=== PATIENT | male | born 1985 | race Caucasian/White ===

== ENCOUNTER 2022-11-11 14:04 | Outpatient (REF) | payer BC, SELFPAY ==
[2022-11-11 15:29] LABS: Bacteria Rare HPF (Negative); Casts Negative LPF (Negative); Crystals Negative HPF (Negative); Epithelial Cells Rare HPF (Negative); Mucus Negative (Negative); RBC 0-2 HPF (0-2); WBC 0-2 HPF (0-5)
[2022-11-11 15:30] LABS: C & S Indicated? C&S Done As Ordered
== END 2022-11-11 14:05 | disposition home or self-care (01) ==
LOC: LBN 14:04
PROVIDERS: Visit Provider Physician Assistant Medical
DX: R30.0 Dysuria (principal)
CPT/HCPCS: 81015; 87086

== ENCOUNTER 2023-07-20 13:54 | Outpatient (REF) | payer BC, SELFPAY ==
[2023-07-20 15:35] LABS: Abs Immature Grans 0.01 10^3/uL (0.0-0.06); Absolute Basophil Count 0.05 10^3/uL (0.0-0.2); Absolute Eosinophil Count 0.33 10^3/uL (0.0-0.7); Absolute Monocyte Count 0.58 10^3/uL (0.1-0.8); Absolute Neutrophil Count 3.06 10^3/uL (1.2-6.7); Basophils % 0.8; Eosinophils % 5.1; HCT 46.2 % (40.0-50.0); HGB 16.1 g/dL (13.5-17.5); Immature Grans % 0.2; Lymphocytes % 37.3; MCH 29.2 pg (27.0-33.0); MCHC 34.8 % (32.0-36.0); MCV 84 fL (80-95); MPV 10.8 fL (8.0-11.0); Neutrophils % 47.6; Platelet Count 229 10^3/uL (130-400); RBC 5.52 10^6/uL (4.36-5.78); WBC 6.43 10^3/uL (4.4-10.8)
[2023-07-20 16:03] LABS: ALT 38 U/L (16-63); AST 28 U/L (15-37); Alkaline Phosphatase 62 U/L (46-116); Anion Gap 8.7 mmol/L (3-11); BUN 13 mg/dL (7-18); Bilirubin, Total 0.8 mg/dL (0.2-1.0); CO2 29.3 mmol/L (21.0-32.0); CREATININE 1.2 mg/dL (0.70-1.30); Calcium 9.2 mg/dL (8.5-10.1); Calculated LDL 121 mg/dL (<100); Chloride 107 mmol/L (98-107); Cholesterol 203 mg/dL (<200); Estimated GFR 79.88 (mL/min/1.73m2); Glucose 136 mg/dL (74-106); HDL Cholesterol 71 mg/dL (40-60); Potassium 5.2 mmol/L (3.5-5.1); Sodium 145 mmol/L (136-145); Total Protein 7.7 g/dL (6.4-8.2); Triglyceride 55 mg/dL (<150)
[2023-07-20 17:28] LABS: Hemoglobin A1C 5.6 % (<5.7)
== END 2023-07-20 13:55 | disposition home or self-care (01) ==
LOC: NCHCN 13:54
PROVIDERS: Referring Provider Family Medicine; Visit Provider Family Medicine
DX: E10.9 Type 1 diabetes mellitus without complications (principal)
CPT/HCPCS: 80053; 80061; 83036; 85025

== ENCOUNTER 2023-11-03 11:50 | Outpatient (REF) | payer BC, SELFPAY ==
[2023-11-03 16:48] LABS: AST 21 U/L (15-37); TSH (W/Ref FT4) 0.89 uIU/mL (0.36-3.74)
[2023-11-10 09:34] LABS: Testosterone, Free 14.1 ng/dL (4.65-18.1); Testosterone, Total 627 ng/dL (240-950)
== END 2023-11-03 11:51 | disposition home or self-care (01) ==
LOC: NCHCN 11:50
PROVIDERS: PCP Family Medicine; Visit Provider Family Medicine
DX: E78.5 Hyperlipidemia, unspecified (principal); R53.83 Other fatigue
CPT/HCPCS: 84402; 84403; 84443; 84450

== ENCOUNTER 2024-11-14 13:53 | Outpatient (REF) | payer BC, SELFPAY ==
[2024-11-14 16:01] LABS: ALT 53 U/L (16-63); AST 67 U/L (15-37); Albumin 4.1 g/dL (3.4-5.0); Alkaline Phosphatase 63 U/L (46-116); Anion Gap 5.3 mmol/L (3-11); BUN 15 mg/dL (7-18); Bilirubin, Total 0.9 mg/dL (0.2-1.0); CO2 30.7 mmol/L (21.0-32.0); CREATININE 1.2 mg/dL (0.70-1.30); Calcium 8.8 mg/dL (8.5-10.1); Chloride 104 mmol/L (98-107); Estimated GFR 78.89 (mL/min/1.73m2); Glucose 188 mg/dL (74-106); Sodium 140 mmol/L (136-145); Total Protein 7.9 g/dL (6.4-8.2)
[2024-11-14 17:23] LABS: COMMENT (LAB VIEW ONLY) 181.68 mg/dL; PROTEIN 12.3 mg/dL; Prot/Crea Ur Ratio 0.06
== END 2024-11-14 13:54 | disposition home or self-care (01) ==
LOC: NCHCN 13:53
PROVIDERS: PCP Family Medicine; Visit Provider Family Medicine
DX: E10.9 Type 1 diabetes mellitus without complications (principal)
CPT/HCPCS: 80053; 82565; 84156